=== PATIENT | male | born 2000 | race Caucasian/White ===

== ENCOUNTER 2021-05-03 10:17 | Emergency (ER) | payer MEDICAID, SELFPAY ==
--- NOTE | ~2021-05-03 | US_ITS ---
EXAMINATION: US ABDOMEN LIMITED CLINICAL INFORMATION: Right upper quadrant pain and vomiting. COMPARISON: None TECHNIQUE: Real-time imaging of the right upper quadrant abdominal viscera. FINDINGS: PANCREAS: Not well visualized due to bowel gas. LIVER: Liver echotexture is increased probably representing fatty infiltration. There is a hypoechoic area adjacent to the gallbladder, characteristic location of focal fatty sparing. The liver is normal in size. The liver contour is normal. Parenchymal echogenicity is normal. No other focal hepatic lesion. There is no intrahepatic biliary duct dilatation seen. GALLBLADDER: Normal. The gallbladder is physiologically distended without evidence of stones, sludge, polyps, wall thickening or pericholecystic fluid. COMMON BILE DUCT: Normal in caliber measuring 0.3 cm in diameter. RIGHT KIDNEY: Normal. No hydronephrosis. No renal calculi or focal parenchymal lesions. The kidney measures 11.9 cm in maximum dimension. FREE FLUID: None. US/US abdomen limited IMPRESSION: Fatty liver. Normal-appearing gallbladder. Nonvisualization of the pancreas.
[2021-05-03 10:43] VITALS: BP 135/71; PULSE 79; RESP 18; TEMP 36.6; O2SAT 98; BMI 39.8
[2021-05-03] MEDS: Ondansetron ODT 4 MG TAB.RAPDIS TRANSLINGU (10:50)
[2021-05-03 11:24] LABS: COVID-19 Test Negative (Negative); IDNOW Serial# 55D5AD1C
--- NOTE | 2021-05-03 12:22 | ED_ITS ---
HPI - Abdominal Pain General Chief Complaint: Abdominal Pain Stated Complaint: N/V/D Time Seen by Provider: 05/03/21 11:42 Source: patient and family Mode of arrival: ambulatory Limitations: no limitations History of Present Illness HPI narrative: 20-year-old male with a history of obesity, anxiety, asthma, ADHD here with reports of upper abdominal pain with vomiting after eating fried chicken wings last night. Patient reports he has vomited 4-5 times since then. He is unable to maintain any fluids. He has also had 2-3 episodes of diarrhea. No fever or urinary symptoms. Related Data Previous Rx's Medication Instructions Recorded ondansetron 4 mg disintegrating 4 mg PO Q6H PRN #10 tab 05/03/21 tablet Allergies Allergy/AdvReac Type Severity Reaction Status Date / Time SEAFOOD Allergy Mild HIVES Uncoded 05/03/21 10:42 Mice Allergy Unknown Unknown Uncoded 05/03/21 10:42 Seasonal allergy Allergy Unknown Unknown Uncoded 05/03/21 10:42 Shellfish Allergy Unknown Unknown Uncoded 05/03/21 10:42 Review of Systems Review of Systems Yes all other systems are reviewed and are negative Constitutional: Reports no additional constitutional complaints, Denies body ache(s), Denies chills, Denies fever(s), Denies headache(s) and Denies weakness Eyes: Reports no additional eye complaints and Denies change in vision Reports system reviewed and no additional complaints, except as documented, Estevan es dizziness, Denies headache(s), Denies nasal congestion, Denies nasal discharge and Denies neck pain Cardiovascular: Reports no additional cardiovascular complaints, Denies chest pain, Denies leg edema and Denies dyspnea Respiratory: Reports no additional respiratory complaints, Denies cough and Denies dyspnea Gastrointestinal: Reports no additional gastrointestinal complaints, Reports abdominal pain, Reports diarrhea, Reports nausea and Reports vomiting Genitourinary: Denies urinary incontinence Musculoskeletal: Reports no additional musculoskeletal complaints, Denies back pain, Denies arthralgias, Denies joint swelling, Denies neck pain, Denies numbness and Denies tingling Skin/Breast: Reports system reviewed and no additional complaints, except as docu and Denies rash Reports system reviewed and no additional complaints, except as documented, Denies dizziness, Denies headache(s), Denies numbness, Denies tingling and Denies weakness PMF Past Medical History Attestation statement: The following information was validated with the patient. Source: old records reviewed and nursing notes reviewed Medical History ADHD (attention deficit hyperactivity disorder) Anxiety Asthma Social History Social History Advance Directives: No Advance Directives Information Provided: No Physical Exam ED Vital Signs: Vital Signs - 24 hr 05/03/21 10:43 05/03/21 14:38 Temperature 97.8 F Pulse Rate 79 75 Respiratory Rate 18 16 Blood Pressure 135/71 138/69 Pulse Oximetry 98 99 BMI result Body Mass Index 39.8 Const General: cooperative, healthy appearing, comfortable and no acute distress Orientation/consciousness: patient oriented x3 Limitations: no limitations HENMT Head: Yes normal to inspection Ears: hearing grossly normal bilaterally General nose exam: Normal external nose present Face and sinus: Yes normal facial exam Mouth: Normal oral and palatal mucosa present Throat: Yes posterior oropharynx normal and Yes tonsils normal Eyes General: appearance normal, both eyes and all related structures Pupils: Equal, round and reactive pupils present Neck Neck: Yes normal visual inspection, Yes full ROM, Yes no lymphadenopathy and Yes no meningeal signs Chest Chest palpation & inspection: normal inspection of the chest Resp Effort & Inspection: normal respiratory effort Auscultation: clear to auscultation bilaterally Cardio Rate: regular rate Peripheral pulses: Peripheral pulses 2+ throughout GI Inspection: Yes normal to inspection Palpation (GI): Soft to palpation, Tenderness to palpation present (GI) (Epigastric/RUQ) and no guarding General: Yes no CVA tenderness Back/Spine/Pelvis Back: no CVA tenderness Skin General skin exam: no rashes or lesions noted Neuro General: patient oriented x3, moves all extremities and no meningeal signs Cranial nerves: Yes Equal, round and reactive pupils present Cognition (Neuro): normal cognition Gait exam (Neuro): Normal gait present Motor exam (neuro): 5/5 motor strength present throughout Extrem General: Yes normal to inspection, Yes no pedal edema and Yes no calf tenderness Course Course Course Narrative: 20-year-old male with a history of obesity here with complaints of upper abdomen pain and vomiting since last evening after eating fried chicken. On exam the patient has tenderness to the epigastric and right upper quadrant area. Will check labs, UA, COVID screen, abdominal ultrasound 1440-labs are unremarkable. Abdominal ultrasound is negative for acute cholec ystitis. COVID screen is negative. Patient is tolerating elo tesha with no additional vomiting episodes. He tells me he is feeling improved. Likely viral gastroenteritis. Reviewed worrisome signs and symptoms of when to return to the emergency department. Comfortable discharge home. MDM - Abdominal Pain MDM Narrative Medical decision making narrative: Gastroenteritis, cholecystitis Medical Records Attestation: I reviewed the patient's medical records. Lab Data Attestation: I reviewed the patient's lab results. Result diagrams: 05/03/21 13:01 05/03/21 13:01 Labs: Lab Results 05/03/21 05/03/21 05/03/21 Range/Units 10:48 12:22 13:01 WBC 12.7 H (4.8-10.8) X10*3/uL RBC 5.66 (4.60-5.80) X10*6/uL Hgb 15.4 (14.0-18.0) g/dl Hct 47.5 (42.0-52.0) % MCV 83.9 (80.0-98.0) fL MCH 27.2 (27.0-33.0) pg MCHC 32.4 (31.0-36.0) g/dl RDW 13.0 (11.0-16.0) % Plt Count 403 H (160-400) X10*3/uL MPV 10.0 (9.4-12.4) fL Immature Gran % (Auto) 0.4 (0.0-0.4) % Neut % (Auto) 87.9 H (45-73) % Lymph % (Auto) 5.8 L (20-40) % [place] % (Auto) 5.5 (2-11) % Eos % (Auto) 0.2 (0-4) % Baso % (Auto) 0.2 (0-2) % Lymph # (Auto) 0.7 L (1.2-4.9) X10*3/uL [place] # (Auto) 0.7 (0.1-1.2) X10*3/uL Eos # (Auto) 0.0 (0.0-0.4) X10*3/uL Baso # (Auto) 0.0 (0.0-0.2) X10*3/uL Abs Immat Gran (auto) 0.05 H (0.00-0.03) X10*3/uL Absolute Neuts (auto) 11.1 H (2.0-8.3) x10*3/uL Absolute Nucleated RBC 0.000 (0.0-0.012) X10*3/uL Nucleated RBC % (auto) 0.0 (0.0-0.2) /100WBC Sodium (135-145) mmol/L Potassium (3.3-5.1) mmol/L Chloride (96-108) mmol/L Carbon Dioxide (22-29) mmol/L Anion Gap (12-20) BUN (9-16) mg/dL Creatinine (0.5-1.4) mg/dL Estim Creat Clear Calc Estimated GFR Random Glucose (60-115) mg/dL Calcium (8.4-10.2) mg/dL Total Bilirubin (0.0-1.0) mg/dL Direct Bilirubin (0.0-0.5) mg/dL AST (5-37) U/L ALT (0-40) U/L Alkaline Phosphatase (39-117) U/L Total Protein (6.5-8.0) g/dL Albumin (3.5-5.0) g/dL Lipase (8-78) U/L Urine Color YELLOW Urine Appearance HAZY Urine pH 7.0 (5.0-8.0) Ur Specific [place] 1.015 (1.005-1.025) Urine Protein 1+ H (NEG-TRACE) MG/DL Urine Glucose (UA) NEG (NEG) MG/DL Urine Ketones NEG (NEG) MG/DL Urine Blood NEG (NEG) Urine Nitrite NEG (NEG) Ur Leukocyte Esterase NEG (NEG) Urine RBC 0-2 (0) /HPF Urine WBC 0-2 (0-4) /HPF Ur Squamous Epith Cells TRACE /LPF Urine Bacteria TRACE /LPF Hyaline Casts 0-2 /LPF Urine Mucus 1+ /LPF COVID-19 (GERDA) Negative (Negative) COVID-19 Clin Com See Note 05/03/21 Range/Units 13:01 WBC (4.8-10.8) X10*3/uL RBC (4.60-5.80) X10*6/uL Hgb (14.0-18.0) g/dl Hct (42.0-52.0) % MCV (80.0-98.0) fL MCH (27.0-33.0) pg MCHC (31.0-36.0) g/dl RDW (11.0-16.0) % Plt Count (160-400) X10*3/uL MPV (9.4-12.4) fL Immature Gran % (Auto) (0.0-0.4) % Neut % (Auto) (45-73) % Lymph % (Auto) (20-40) % [place] % (Auto) (2-11) % Eos % (Auto) (0-4) % Baso % (Auto) (0-2) % Lymph # (Auto) (1.2-4.9) X10*3/uL [place] # (Auto) (0.1-1.2) X10*3/uL Eos # (Auto) (0.0-0.4) X10*3/uL Baso # (Auto) (0.0-0.2) X10*3/uL Abs Immat Gran (auto) (0.00-0.03) X10*3/uL Absolute Neuts (auto) (2.0-8.3) x10*3/uL Absolute Nucleated RBC (0.0-0.012) X10*3/uL Nucleated RBC % (auto) (0.0-0.2) /100WBC Sodium 139 (135-145) mmol/L Potassium 4.7 (3.3-5.1) mmol/L Chloride 105 (96-108) mmol/L Carbon Dioxide 27 (22-29) mmol/L Anion Gap 12 (12-20) BUN 10 (9-16) mg/dL Creatinine 0.83 (0.5-1.4) mg/dL Estim Creat Clear Calc 211.9 Estimated GFR > 60 Random Glucose 96 (60-115) mg/dL Calcium 10.3 H (8.4-10.2) mg/dL Total Bilirubin 0.5 (0.0-1.0) mg/dL Direct Bilirubin 0.3 (0.0-0.5) mg/dL AST 22 (5-37) U/L ALT 45 H (0-40) U/L Alkaline Phosphatase 88 (39-117) U/L Total Protein 7.6 (6.5-8.0) g/dL Albumin 4.7 (3.5-5.0) g/dL Lipase 11 (8-78) U/L Urine Color Urine Appearance Urine pH (5.0-8.0) Ur Specific [place] (1.005-1.025) Urine Protein (NEG-TRACE) MG/DL Urine Glucose (UA) (NEG) MG/DL Urine Ketones (NEG) MG/DL Urine Blood (NEG) Urine Nitrite (NEG) Ur Leukocyte Esterase (NEG) Urine RBC (0) /HPF Urine WBC (0-4) /HPF Ur Squamous Epith Cells /LPF Urine Bacteria /LPF Hyaline Casts /LPF Urine Mucus /LPF COVID-19 (GERDA) (Negative) COVID-19 Clin Com Imaging Data US - abdomen: Attestation: I personally reviewed and interpreted this imaging study as follows: Radiologist's impression: [place] [id number] Ultrasound Report Signed Patient: Reyes Moseley MR#: [id number] : 2000 Acct:[id number] Age/Sex: 20 / M ADM Date: 05/03/21 Loc: HO.ED Attending Dr: Ordering Physician: Liza Marcum NP Date of Service: 05/03/21 Procedure(s): US abdomen limited Accession Number(s): [id number] cc: Liza Marcum NP~ EXAMINATION: US ABDOMEN LIMITED CLINICAL INFORMATION: Right upper quadrant pain and vomiting. COMPARISON: None TECHNIQUE: Real-time imaging of the right upper quadrant abdominal viscera. FINDINGS: PANCREAS: Not well visualized due to bowel gas. LIVER: Liver echotexture is increased probably representing fatty infiltration. There is a hypoechoic area adjacent to the gallbladder, characteristic location of focal fatty sparing. The liver is normal in size. The liver contour is normal. Parenchymal echogenicity is normal. No other focal hepatic lesion. There is no intrahepatic biliary duct dilatation seen. GALLBLADDER: Normal. The gallbladder is physiologically distended without evidence of stones, sludge, polyps, wall thickening or pericholecystic fluid. COMMON BILE DUCT: Normal in caliber measuring 0.3 cm in diameter. RIGHT KIDNEY: Normal. No hydronephrosis. No renal calculi or focal parenchymal lesions. The kidney measures 11.9 cm in maximum dimension. FREE FLUID: None. US/US abdomen limited IMPRESSION: Fatty liver. Normal-appearing gallbladder. Nonvisualization of the pancreas. Discharge Plan Discharge Clinical Impression: Gastroenteritis Patient Disposition: Home, Self-Care Instructions: Gastroenteritis (DC) Additional Instructions: Start with clear liquids and advance diet as tolerated Your blood work, ultrasound all of normal COVID test is negative Prescriptions: New ondansetron 4 mg tablet,disintegrating 4 mg PO Q6H PRN (Reason: nausea and vomiting) Qty: 10 0RF Referrals: Dm Ag MD [Primary Care Provider] - 1 week Stand Alone Forms: Work/School Release Interventions: ED Discharge Assessment Last Done: 05/03/21 15:23 Discharge Date/Time: 05/03/21 15:23
[2021-05-03 12:28] LABS: Appearance Urine HAZY; Color Urine YELLOW; Glucose Urine UA NEG (NEG); Leukocyte Esterase Urine NEG (NEG); Nitrite Urine NEG (NEG); Specific Gravity - Urine 1.015 (1.005-1.025); UACC Culture Trigger NO; Urine Blood NEG (NEG); Urine Ketones NEG (NEG); Urine Protein 1+ MG/DL (NEG-TRACE)
[2021-05-03 12:37] LABS: Bacteria Urine TRACE /LPF; Hyaline Casts Urine 0-2 /LPF; Mucus Urine 1+ /LPF; RBC Urine 0-2 /HPF (0); Squamous Epithelial Cell Urine TRACE /LPF; WBC Urine 0-2 /HPF (0-4)
[2021-05-03] MEDS: ondansetron HCL 4 MG/2 ML VIAL IVPUSH (13:04)
[2021-05-03] MEDS: Morphine Sulfate 4 MG/ML CARTRIDGE IVPUSH (13:05)
[2021-05-03] MEDS: 0.9 % Sodium Chloride 1,000 ML 999 ML IV (13:05)
[2021-05-03 13:09] LABS: MANUAL DIFF FLAG NO
[2021-05-03 13:18] LABS: Basophils Percent Auto 0.2 % (0-2); Eosinophils Percent Auto 0.2 % (0-4); Hematocrit 47.5 % (42.0-52.0); Hemoglobin 15.4 g/dl (14.0-18.0); Imm Gran Abs Auto 0.05 X10*3/uL (0.00-0.03); Imm Gran Pct Auto 0.4 % (0.0-0.4); Lymphocytes Absolute Auto 0.7 X10*3/uL (1.2-4.9); Lymphocytes Percent Auto 5.8 % (20-40); Mean Corpuscular HGB Conc 32.4 g/dl (31.0-36.0); Mean Corpuscular Hemoglobin 27.2 pg (27.0-33.0); Mean Corpuscular Volume 83.9 fL (80.0-98.0); Monocytes Absolute Auto 0.7 X10*3/uL (0.1-1.2); Monocytes Percent Auto 5.5 % (2-11); Neutrophils Absolute Auto 11.1 x10*3/uL (2.0-8.3); Neutrophils Percent Auto 87.9 % (45-73); Platelet Count 403 X10*3/uL (160-400); Red Blood Count 5.66 X10*6/uL (4.60-5.80); White Blood Count 12.7 X10*3/uL (4.8-10.8)
[2021-05-03 13:33] LABS: Alanine Aminotransferase 45 U/L (0-40); Albumin Level 4.7 g/dL (3.5-5.0); Alkaline Phosphatase 88 U/L (39-117); Anion Gap 12 (12-20); Aspartate Amino Transferase 22 U/L (5-37); Bilirubin Direct 0.3 mg/dL (0.0-0.5); Bilirubin Total 0.5 mg/dL (0.0-1.0); Blood Urea Nitrogen 10 mg/dL (9-16); Calcium 10.3 mg/dL (8.4-10.2); Carbon Dioxide 27 mmol/L (22-29); Chloride 105 mmol/L (96-108); Creatinine Clr Calc Pharmacy 211.9; Estimated Glomerular Filt Rate > 60; Glucose Random 96 mg/dL (60-115); Lipase 11 U/L (8-78); Potassium 4.7 mmol/L (3.3-5.1); Sodium 139 mmol/L (135-145); Total Protein 7.6 g/dL (6.5-8.0)
[2021-05-03 14:38] VITALS: BP 138/69; PULSE 75; RESP 16; O2SAT 99
== END 2021-05-03 15:23 | disposition home or self-care (01) ==
PROVIDERS: Nurse Practitioner Family; Emergency Provider Emergency Medicine; PCP Internal Medicine
DX: K52.9 Noninfective gastroenteritis and colitis, unspecified (principal); R11.10 Vomiting, unspecified; R10.11 Right upper quadrant pain; F41.1 Generalized anxiety disorder; F43.0 Acute stress reaction; Z20.822 Contact with and (suspected) exposure to COVID-19; Z79.899 Other long term (current) drug therapy
CPT/HCPCS: 36415; 76705; 80048; 80076; 81001; 83690; 85025; 87635; 96361; 96374; 96375; 99283; 99284; J2270; J2405

== ENCOUNTER 2022-11-20 16:53 | Emergency (ER) | payer MEDICAID, SELFPAY ==
--- NOTE | ~2022-11-20 | XR_ITS ---
EXAMINATION: XR CHEST CLINICAL INFORMATION: Productive cough. History of Covid COMPARISON: None available. TECHNIQUE: 2 views of the chest were obtained. FINDINGS: No significant abnormality is noted involving the heart, lungs, mediastinum, bony thorax or soft tissues. XR/XR chest 2V IMPRESSION: Unremarkable examination.
[2022-11-20 17:22] VITALS: BP 140/94; PULSE 87; RESP 18; TEMP 36; O2SAT 98; BMI 45.6
--- NOTE | 2022-11-20 17:22 | ED_ITS ---
HPI - General Adult General Chief complaint: Upper Respiratory Symptoms Stated complaint: Headache/Conjested Time Seen by Provider: 11/20/22 21:40 Source: patient and family Mode of arrival: ambulatory History of Present Illness HPI narrative: 21-year-old male with presentation for headache, congestion, red itchy eyes for 3 days, sore throat, cough. Related Data Previous Rx's Medication Instructions Recorded ondansetron 4 mg disintegrating 4 mg PO Q6H PRN nausea and 05/03/21 tablet vomiting #10 tabs Allergies Allergy/AdvReac Type Severity Reaction Status Date / Time SEAFOOD Allergy Mild HIVES Uncoded 11/20/22 17:26 Mice Allergy Unknown Unknown Uncoded 11/20/22 17:26 Seasonal allergy Allergy Unknown Unknown Uncoded 11/20/22 17:26 Shellfish Allergy Unknown Unknown Uncoded 11/20/22 17:26 Review of Systems Review of Systems: Pertinent positives and negatives as stated in HPI [facility] Past Medical History Source: nursing notes reviewed Medical History ADHD (attention deficit hyperactivity disorder) Anxiety Asthma Social History Social History Smoked in Last 30 Days: No Use of substances other than those prescribed or required for medical reasons: No Advance Directives: No Advance Directives Information Provided: No Physical Exam ED Vital Signs: Vital Signs - 24 hr 11/20/22 17:22 11/20/22 23:22 Temperature 96.8 F Pulse Rate 87 Respiratory Rate 18 Blood Pressure 140/94 H Pulse Oximetry 98 97 Oxygen Delivery Method Room Air Room Air BMI result Body Mass Index 45.6 VITAL SIGNS: Reviewed. GENERAL: Well developed, well nourished, in no acute distress. HEAD: Normocephalic/atraumatic EYES: PERRLA, EOMI EARS: Ext canals without abnormality, TMs non-bulging and non-erythematous NOSE: Nares patent bilateral OROPHARYNX: no oral lesions noted, posterior pharynx clear and non-erythematous without noted tonsillar enlargement/erythema/exudates NECK: Supple, no adenopathy LUNGS: Normal breath sounds. No adventitious sounds or accessory muscle use. SpO2<98> CARDIOVASCULAR: Regular rate and rhythm without noted murmurs ABDOMEN: Soft, non-tender, non-distended with bowel sounds. MUSCULOSKELETAL: No tenderness, deformities, or effusions noted on gross inspection. EXTREMITIES: No cyanosis, clubbing or edema. SKIN: Inspection of the skin reveals no rashes NEUROLOGIC: Alert and oriented x 4. Strength and sensation to light touch were grossly intact x 4. Course Course Course Narrative: This is a rapid medical exam: Additional HPI, ROS, PE not included below will be deferred to primary provider. Patient is a 21-year-old male presenting to the emergency department with complaint of headache and eye redness for 3 days, had Covid last week. Also complains of bilateral ear pain and sore throat, cough productive of green sputum. Mother reports patient felt warm yesterday but did not check temp. Plan: strep, flu Medications Administered Discontinued Medications Generic Name Dose Route Start Last Admin Trade Name Freq PRN Reason Stop Dose Admin Acetaminophen 975 mg 11/20/22 21:40 11/20/22 23:19 Acetaminophen 325 Mg Tablet PO 11/20/22 21:41 975 mg ONCE ONE Administration Ibuprofen 400 mg 11/20/22 21:40 11/20/22 23:19 Ibuprofen 400 Mg Tablet PO 11/20/22 21:41 400 mg ONCE ONE Administration Medical Decision Making Medical Decision Making MDM Narrative: 21-year-old male with history and clinical presentation consistent with likely viral illness, I reviewed all investigations and patient is COVID-19 positive. He is oxygenating well on room air without tachypnea or tachycardia. Symptoms have been for greater than 72 hours and he does not qualify for Paxlovid. He was offered Tylenol as well as ibuprofen and discharged home. Differential Diagnosis Differential Diagnoses: The differential diagnosis associated with the presentation includes Please see the discussion above Admission/Observation Consideration of admission/observation: Escalation of care including admission/observation considered Please see the discussion above Lab Data [facility] Lab Attestation statement: I reviewed the patient's lab results. Please see the discussion above Labs: Lab Results 11/20/22 11/20/22 11/20/22 Range/Units 17:53 17:53 21:47 COVID-19 (GERDA) Positive A (Negative) COVID-19 Clin Com See Note Influenza Type A (TIFFANY) Negative (Negative) Influenza Type B (TIFFANY) Negative (Negative) Influenza A & B Note See Note S. pyogenes GrpA TIFFANY Negative (Negative) Discharge Plan Discharge Clinical Impression: Viral infection, Lab test positive for detection of COVID-19 virus Patient Disposition: Home, Self-Care Instructions: Viral Syndrome (ED), COVID-19 (Coronavirus Disease 2019) (ED) Additional Instructions: 1. You must isolate for the next 5 days, then follow all CDC guidelines for interaction with others. 2. Recommend [id number] Tylenol/ibuprofen as needed for body aches, temperatures greater than 100.4. 3. Make an appointment with your primary care doctor via telemedicine appointment. Return to the ER for any worsening symptoms. Prescriptions: No Action ondansetron 4 mg tablet,disintegrating 4 mg PO Q6H PRN (Reason: nausea and vomiting) Qty: 10 0RF
--- OUTSIDE RECORDS SUMMARY | 2022-11-20 17:57 | XMS_ITS | Continuity of Care Document ---
Author Name Unknown Organization [facility] Address [address] [place] [address]- Care Team Providers Care Chief Safety Officer Name Role Phone Michael JACK, Estelita Z Primary Care Physician ([facility])[phone] [id number] Date[facility]14[facility]20 [facility] [address] [place] [address]- Attending Physician: Katerin Norris RD Admitting Physician: Katerin Norris RD Allergies, Adverse Reactions, Alerts Substance Reaction Severity Status Seafood Active Medications advair advair, Refills 0, Maintenance, 03/29/18 14:31:03 EST, Compound Start Date: 03/29/18 Status: Ordered Albuterol 0 Refills, Maintenance, 11/25/14 12:07:29 Start Date: 11/25/14 Status: Ordered dicyclomine 10 mg oral capsule 1 capsule = 10 mg, By Mouth, 2 times a day, # 60 capsule, 6 Refills, Maintenance, 09/17/19 17:59:00EDT, Capsule, [id number], 188.2, cm, 06/23/19 8:42:00 EDT, Height, 137.7, kg, 03/29/18 14:28:00 EST, Dry Weight Start Date: 09/17/19 Stop Date: 04/14/20 Status: Ordered EpiPen 2-Caden = 0.3 mg, Intramuscular, Once, 0 Refills, Maintenance, 07/31/17 13:05:41 EDT Start Date: 07/31/17 Status: Ordered Loratadine By Mouth, Refills 0, Maintenance, 09/17/15 14:24:21 Start Date: 09/17/15 Status: Ordered Melatonin Daily at bedtime, 0 Refills, Maintenance, 07/31/17 13:05:37 EDT Start Date: 07/31/17 Status: Ordered Methylphenidate 0 Refills, Maintenance, 09/17/15 14:24:05 Start Date: 09/17/15 Status: Ordered Ranitidine 0 Refills, Maintenance, 03/29/18 14:31:15 EST Start Date: 03/29/18 Status: Ordered Sertraline By Mouth, Daily, 0 Refills, Maintenance, 09/17/15 14:23:30 Start Date: 09/17/15 Status: Ordered Problem List Condition Effective Dates Status Health Status Inform ant Abdominal pain(Confirmed) Active Abdominal pain(Confirmed) Active Obesity, childhood(Confirmed) Active Social History Social History Type Response Smoking Status Never smoker; Tobacc o user in household: No entered on: 07/31/17 Sex
--- OUTSIDE RECORDS SUMMARY | 2022-11-20 17:57 | XMS_ITS | Continuity of Care Document ---
Author Name Unknown Organization [facility] Address [address] [place] [address]- Care Team Providers Care Hand Alterations Tailor Name Role Phone Michael JACK, Estelita Doran Primary Care Physician [id number] Date(s): 06/23/19 - 06/30/19 [facility] [address] [place] [address] [facility] Attending Physician: Zachariah GARCIA, Tj Araujo Allergies, Adverse Reactions, Alerts Substance Reaction Severity Status Seafood Active Medications advair advair, Refills 0, Maintenance, 03/29/18 14:31:03 EST, Compound Start Date: 03/29/18 Status: Ordered Albuterol 0 Refills, Maintenance, 11/25/14 12:07:29 Start Date: 11/25/14 Status: Ordered EpiPen 2-Caden = 0.3 mg, [...] Active Abdominal pain(Confirmed) Active Obesity, childhood(Confirmed) Active Vital Signs Most recent to oldest [Reference Range]: 1 2 Height 188.2 cm (06/23/19 8:42 AM) 188.2 cm (06/23/19 8:42 AM) Social History Social History Type Response Smoking Status Never smoker; Tobacc o user in household: No entered on: 07/31/17 Sex
--- OUTSIDE RECORDS SUMMARY | 2022-11-20 17:57 | XMS_ITS | Continuity of Care Document ---
Author Name Unknown Organization [facility] Address [address] [place] [address]- Care Team Providers Care Cleaner Housekeeping Name Role Phone Michael JACK, Estelita Doran Primary Care Physician [phone] Encounter [facility] Date(s): 06/11/19 - 06/18/19 [facility] [address] [place] [id number] [facility] Attending Physician: Boo GARCIA, Yesenia Kim Allergies, Adverse Reactions, Alerts Substance Reaction Severity [...]
--- OUTSIDE RECORDS SUMMARY | 2022-11-20 17:57 | XMS_ITS | Continuity of Care Document ---
Author Name Unknown Organization [facility] Address [address] [place] [address]- Care Team Providers Care Coding Machine Operator Name Role Phone Michael JACK, Estelita Z Primary Care Physician Encounter [facility] Date(s): 08/12/19 - 09/11/19 [facility] [address] [place] [phone] [facility] Attending Physician: Donald Ritchie Admitting Physician: Admtr, Donald Referring Physician: Admtr, Ar8 Allergies, Adverse Reactions, Alerts Substance Reaction Severity [...]
--- OUTSIDE RECORDS SUMMARY | 2022-11-20 17:57 | XMS_ITS | Continuity of Care Document ---
Author Name Unknown Organization [facility] Address [address] [place] [address]- Care Team Providers Care Commercial Food Instructor Name Role Phone Michael JACK, Estelita Doran Primary Care Physician Encounter [facility] Date(s): 09/23/19 - 10/23/19 [facility] [address] [place] [phone]- [facility] Allergies, Adverse Reactions, Alerts Substance Reaction Severity Status Seafood Active Medications advair advair, Refills 0, Maintenance, 03/29/18 14:31:03 EST, Compound Start Date: 03/29/18 Status: Ordered Albuterol 0 Refills, Maintenance, 11/25/14 12:07:29 Start Date: 11/25/14 Status: Ordered dicyclomine 10 mg oral capsule 1 capsule = 10 mg, By Mouth, 2 times a day, # 60 capsule, 6 Refills, Maintenance, 09/17/19 17:59:00EDT, Capsule, [id number], 188.2, cm, 06/23/19 8:42:00 EDT, Height, 137.7, [...]
--- OUTSIDE RECORDS SUMMARY | 2022-11-20 17:57 | XMS_ITS | Continuity of Care Document ---
Author Name Unknown Organization [facility] Address Unknown Care Team Providers Care Sewage Plant Attendant Name Role Phone Kristal Yeung MD, Dm Primary Care Phys ician Encounter [facility] [place] Date(s): 10/04/20 - 11/03/20 [facility] [address] [place] [id number] Allergies, Adverse Reactions, Alerts Substance Reaction Severity Status Seafood Active Medications advair advair, Refills 0, Maintenance, 03/29/18 14:31:03 EST, Compound Start Date: 03/29/18 Status: Ordered Albuterol 0 Refills, Maintenance, 11/25/14 12:07:29 Start Date: 11/25/14 Status: Ordered dicyclomine 10 mg oral capsule 1 capsule = 10 mg, By Mouth, 2 times a day, # 60 capsule, 6 Refills, Maintenance, 09/17/19 17:59:00EDT, Capsule, [facility] #[id number], 188.2, cm, 06/23/19 8:42:00 EDT, Height, 137.7, [...]
--- OUTSIDE RECORDS SUMMARY | 2022-11-20 17:57 | XMS_ITS | Continuity of Care Document ---
Author Name Unknown Organization [facility] Address [address] [place] [address]- Care Team Providers Care Concrete Technician Name Role Phone Michael JACK, Estelita Z Primary Care Physician ([facility])[phone] [id number](s[facility] 07/16/20 - 08/15/20 [facility] [address] [place] [address]- Attending Physician: Donald Ritchie Admitting Physician: Donald Ritchie Referring Physician: Donald Ritchie Allergies, Adverse Reactions, Alerts Substance Reaction Severity Status Seafood Active Medications advair advair, Refills 0, Maintenance, 03/29/18 14:31:03 EST, Compound Start Date: 03/29/18 Status: Ordered Albuterol 0 Refills, Maintenance, 11/25/14 12:07:29 Start Date: 11/25/14 Status: Ordered dicyclomine 10 mg oral capsule 1 capsule = 10 mg, By Mouth, 2 times a day, # 60 capsule, 6 Refills, Maintenance, 09/17/19 17:59:00EDT, Capsule, [facility] #[id number], 188.2, cm, 06/23/19 8:42:00 EDT, Height, 137.7, [...]
--- OUTSIDE RECORDS SUMMARY | 2022-11-20 17:57 | XMS_ITS | Continuity of Care Document ---
Author Name Unknown Organization [facility] Address Unknown Care Team Providers Care Supervisor Carding Name Role Phone Kristal Yeung MD, Dm Primary Care Phys ician Encounter [facility] [place] Date(s): 10/01/20 - 11/03/20 [facility] Attending Physician: Nancy Sage NP Admitting Physician: Nancy Sage NP Allergies, Adverse Reactions, Alerts Substance Reaction Severity Status Seafood Active Medications advair advair, Refills 0, Maintenance, 03/29/18 14:31:03 EST, Compound Start Date: 03/29/18 Status: Ordered Albuterol 0 Refills, Maintenance, 11/25/14 12:07:29 Start Date: 11/25/14 Status: Ordered dicyclomine 10 mg oral capsule 1 capsule = 10 mg, By Mouth, 2 times a day, # 60 capsule, 6 Refills, Maintenance, 09/17/19 17:59:00EDT, Capsule, [facility] #[id number], 188.2, cm, 06/23/19 8:42:00 EDT, Height, 137.7, [...]
--- OUTSIDE RECORDS SUMMARY | 2022-11-20 17:57 | XMS_ITS | Continuity of Care Document ---
Author Name Unknown Organization [facility] Address [address] [place] [address]- Care Team Providers Care Pot Fluxer Name Role Phone Michael JACK, Estelita Doran Primary Care Physician [phone] Encounter [facility] [place] Date(s): 09/17/19 - 10/17/19 [facility] [address] [place] [address]- [facility] Allergies, Adverse Reactions, Alerts Substance Reaction Severity Status Seafood Active Medications advair advair, Refills 0, Maintenance, 03/29/18 14:31:03 EST, Compound Start Date: 03/29/18 Status: Ordered Albuterol 0 Refills, Maintenance, 11/25/14 12:07:29 Start Date: 11/25/14 Status: Ordered dicyclomine 10 mg oral capsule 1 capsule = 10 mg, By Mouth, 2 times a day, # 60 capsule, 6 Refills, Maintenance, 09/17/19 17:59:00EDT, Capsule, [facility] #[id number], 188.2, cm, 06/23/19 8:42:00 EDT, Height, 137.7, [...]
--- OUTSIDE RECORDS SUMMARY | 2022-11-20 17:57 | XMS_ITS | Continuity of Care Document ---
Author Name Unknown Organization [facility] Address [address] [place] [address]- Care Team Providers Care Director Biologics Name Role Phone Michael JACK, Estelita Doran Primary Care Physician [id number] Date(s): 06/23/19 - 07/03/19 [facility] [address] [place] [address]- [facility] Attending Physician: Admtr, Ar8 Admitting Physician: Admtr, Ar8 Referring Physician: Admtr, Ar8 Allergies, Adverse Reactions, [...]
--- OUTSIDE RECORDS SUMMARY | 2022-11-20 17:57 | XMS_ITS | Continuity of Care Document ---
Author Name Unknown Organization [facility] Address Unknown Care Team Providers Care Repeat Photocomposing Machine Operator Name Role Phone Kristal Yeung MD, Dm Primary Care Phys ician Encounter [facility] [place] Date(s): 10/04/20 - 11/03/20 [facility] Attending Physician: Donald Ritchie Admitting Physician: Donald Ritchie Referring Physician: AdmtrDonald Allergies, Adverse Reactions, Alerts Substance Reaction Severity Status Seafood Active Medications advair advair, Refills 0, Maintenance, 03/29/18 14:31:03 EST, Compound Start Date: 03/29/18 Status: Ordered Albuterol 0 Refills, Maintenance, 11/25/14 12:07:29 Start Date: 11/25/14 Status: Ordered dicyclomine 10 mg oral capsule 1 capsule = 10 mg, By Mouth, 2 times a day, # 60 capsule, 6 Refills, Maintenance, 09/17/19 17:59:00EDT, Capsule, [facility] #[id number], 188.2, cm, 06/23/19 8:42:00 EDT, Height, 137.7, [...]
--- OUTSIDE RECORDS SUMMARY | 2022-11-20 17:57 | XMS_ITS | Continuity of Care Document ---
Author Name Unknown Organization [facility] Address [address] [place] [address]- Care Team Providers Care Log Roper Name Role Phone Kristal Yeung MD, Dm Primary Care Phys ician Encounter [facility] [place] Date(s): 02/01/21 - 02/01/[address] [address] Discharge Disposition: A-D/C Home Attending Physician: Elver Alberts DMD, V Admitting Physician: Elver Alberts DMD, V Referring Physician: Elver Alberts DMD, V Allergies, Adverse Reactions, Alerts Substance Reaction Severity Status Seafood Active Medications advair advair, Refills 0, Maintenance, 03/29/18 14:31:03 EST, Compound Start Date: 03/29/18 Status: Ordered Albuterol 0 Refills, Maintenance, 11/25/14 12:07:29 Start Date: 11/25/14 Status: Ordered dicyclomine 10 mg oral capsule 1 capsule = 10 mg, By Mouth, 2 times a day, # 60 capsule, 6 Refills, Maintenance, 09/17/19 17:59:00EDT, Capsule, [facility] #[id number], 188.2, cm, 06/23/19 8:42:00 EDT, Height, 137.7, [...] 09/17/15 14:24:05 Start Date: 09/17/15 Status: Ordered OxyCODONE IR Tablet 5 mg, Tablet, By Mouth, Every 4 hours, in PACU ONLY, if patient can tolerate PO, PRN for Pain , Mild, Routine, 02/01/21 14:12:00 EST Start Date: 02/01/21 Stop Date: 02/08/21 Status: Ordered Ranitidine 0 Refills, Maintenance, 03/29/18 14:31:15 EST Start Date: 03/29/18 Status: Ordered Sertraline By Mouth, Daily, 0 Refills, Maintenance, 09/17/15 14:23:30 Start Date: 09/17/15 Status: Ordered Problem List Condition Effective Dates Status Health Status Inform ant Abdominal pain(Confirmed) Active Abdominal pain(Confirmed) Active Obesity, childhood(Confirmed) Active Vital Signs Most recent to oldest [Reference Range]: 1 2 3 Oxygen Saturation [94-100 %] 97 % (02/01/21 2:45 PM) 97 % (02/01/21 2:30 PM) 97 % (02/01/21 2:15 PM) Pulse Rate [55-90 bpm] 72 bpm (02/01/21 12:44 PM) Blood Pressure [90-138/55-84 mm Hg] 136/78mm Hg (02/01/21 2:45 PM) 137/78mm Hg (02/01/21 2:30 PM) 137/78mm Hg (02/01/21 2:15 PM) Respiratory Rate [16-30 br/min] 15 br/min *L* (02/01/21 3:01 PM) 19 br/min (02/01/21 2:45 PM) 12 br/min *L* (02/01/21 2:30 PM) Temperature [96.8-100.4 DegF] 97.5 DegF (02/01/21 3:30 PM) 97.7 DegF (02/01/21 2:15 PM) 98 DegF (02/01/21 12:44 PM) Mode of Delivery (Oxygen) Room air (02/01/21 2:30 PM) Room air (02/01/21 2:15 PM) Room air (02/01/21 12:44 PM) Blood pressure sites Arm, right (02/01/21 2:15 PM) Temperature Route Temporal (02/01/21 3:30 PM) Temporal (02/01/21 2:15 PM) Temporal (02/01/21 12:44 PM) Social History Social History Type Response Smoking Status Never smoker; Tobacc o user in household: No entered on: 07/31/17 Sex
--- OUTSIDE RECORDS SUMMARY | 2022-11-20 17:57 | XMS_ITS | Continuity of Care Document ---
Author Name Unknown Organization [facility] Address [address] [place] [address]- Care Team Providers Care Parts Designer Name Role Phone Michael JACK, Estelita Doran Primary Care Physician Encounter [facility] [place] Date(s): 09/17/19 - 09/24/19 [facility] [address] [place] [address]- [facility] Attending Physician: Boo GARCIA, Yesenia Kim Allergies, [...] capsule, 6 Refills, Maintenance, 09/17/19 17:59:00EDT, Capsule, [facility] #[id number], 188.2, cm, 06/23/19 8:42:00 EDT, Height, 137.7, [...]
--- OUTSIDE RECORDS SUMMARY | 2022-11-20 17:57 | XMS_ITS | Continuity of Care Document ---
Author Name Unknown Organization [facility] Address [address] [place] [address]- Care Team Providers Care Button Spindler Name Role Phone Michael JACK, Estelita Doran Primary Care Physician [phone] [id number] - 11/20/[facility] [address] [place] [address] [place] [facility] Attending Physician: Yesenia Haddad MD Admitting Physician: Yesenia Haddad MD Allergies, Adverse Reactions, Alerts Substance Reaction Severity Status Seafood Active Medications advair advair, Refills 0, Maintenance, 03/29/18 14:31:03 EST, Compound Start Date: 03/29/18 Status: Ordered Albuterol 0 Refills, Maintenance, 11/25/14 12:07:29 Start Date: 11/25/14 Status: Ordered dicyclomine 10 mg oral capsule 1 capsule = 10 mg, By Mouth, 2 times a day, # 60 capsule, 6 Refills, Maintenance, 09/17/19 17:59:00EDT, Capsule, [facility] #[id number], 188.2, cm, 06/23/19 8:42:00 EDT, Height, 137.7, [...] Refills, Maintenance, 07/31/17 13:05:37 EDT Start Date: 5/15/18 Status: Ordered Methylphenidate 0 Refills, Maintenance, 09/17/15 [...]
--- OUTSIDE RECORDS SUMMARY | 2022-11-20 17:57 | XMS_ITS | Continuity of Care Document ---
Author Name Unknown Organization [facility] Address [address] [place] [address]- Care Team Providers Care Adult Manager Name Role Phone Michael JACK, Estelita Doran Primary Care Physician [phone] [place] [facility] [place] 09/17/19 - 10/17/19 [facility] [address] [place] [address] [facility] Attending Physician: Admtr, Merrill8 Admitting Physician: Admtr, Ar8 Referring Physician: Admtr, [...] capsule, 6 Refills, Maintenance, 09/17/19 17:59:00EDT, Capsule, [facility] #[id number], 188.2, cm, 06/23/19 8:42:00 EDT, Height, 137.7, [...]
[2022-11-20 18:10] LABS: IDNOW Serial# 08D9AD1C; Strep A Nucleic Acid Negative (Negative)
[2022-11-20 18:16] LABS: IDNOW Serial# BCCEAD1C; Influenza A Negative (Negative); Influenza B2 Negative (Negative)
[2022-11-20 22:01] LABS: COVID-19 Test Positive (Negative); IDNOW Serial# 9DB6401D
[2022-11-20] MEDS: Ibuprofen 400 MG TABLET PO (23:19)
[2022-11-20] MEDS: Acetaminophen 325 MG TABLET 975 MG PO (23:19)
[2022-11-20 23:22] VITALS: O2SAT 97
[2022-11-20 23:59] VITALS: BP 117/95; PULSE 88; RESP 20; TEMP 36.9; O2SAT 97
--- NOTE | 2022-11-21 00:02 | PC.NURSE ---
Reviewed discharge instructions with pt. pt verbalized understanding, no sign of distress, Notified RN Mayuri.
== END 2022-11-21 00:05 | disposition home or self-care (01) ==
PROVIDERS: Registered Nurse Emergency; Emergency Provider Student in an Organized Health Care Education/Training Program
DX: U07.1 COVID-19 (principal); R51.9 Headache, unspecified; R09.89 Other specified symptoms and signs involving the circulatory and respiratory systems; Z79.899 Other long term (current) drug therapy
CPT/HCPCS: 71046; 87502; 87635; 87651; 99283; 99284

== ENCOUNTER 2023-11-12 10:13 | Outpatient (AMB) | payer MEDICAID, SELFPAY ==
[2023-11-12 10:32] VITALS: BP 142/90; PULSE 71; O2SAT 98; BMI 46.5
--- NOTE | 2023-11-12 10:32 | MHC.OFFVIS ---
Vital Signs 11/12/23 10:32 Height 6 ft Weight 342 lb 13.101 oz BMI 46.5 BP 142/90 H Blood Pressure Location Rt brachial Position Sitting Pulse 71 Pulse Source Pulse Oximeter Pulse Oximetry (%) 98 Oxygen Delivery Method Room Air Intake Visit Reasons: Asthma Allergies SEAFOOD Allergy (Mild, Uncoded 11/12/23 10:36) HIVES Mice Allergy (Unknown, Uncoded 11/12/23 10:36) Unknown Seasonal allergy Allergy (Unknown, Uncoded 11/12/23 10:36) Unknown Shellfish Allergy (Unknown, Uncoded 11/12/23 10:36) Unknown HPI HPI Asthma: Details: Reyes is pleasant 22 year old male, never smoker, with underlying asthma and environmental allergies. He is accompanied by his mother. He reports asthma since childhood, never requiring intubation. He was previously under the care of gate person for asthma and allergies, however was lost to follow up and presents today to establish with pulmonary. He was on advair and singulair with good control of symptoms. He has been out of both for quite some time and reports wheezing, dry cough, and dyspnea with exertion. He reports multiple seasonal allergies, using a daily antihistamine with good effect. He denies any pets at home. He reports multiple first degree family members with allergies and asthma. [facility] Medical History (Updated 11/16/23 @ 13:01 by Nela Mueller NP) Anxiety ADHD (attention deficit hyperactivity disorder) Asthma Social History (Updated 11/12/23 @ 10:36 by Nikki Quinonez CMA) Patient Tobacco Use Status: Never used Tobacco Review of Systems Const Denies chills, Denies excessive sweating, Denies fever(s), Denies headache(s) and Denies night sweats Eyes Denies dry eyes, Denies irritation and Denies itchy eyes ENT Reports Normal hearing present, Denies headache(s), Denies nasal congestion, Denies nasal discharge, Denies post nasal drip and Denies sore throat Card Denies chest pain, Denies chest pain at rest, Denies chest pain with activity, Denies claudication, Denies leg edema, Denies orthopnea and Denies paroxysmal nocturnal dyspnea Resp Denies chest congestion, Denies excessive phlegm production, Denies pain on inspiration, Denies pain with cough and Denies stridor Musc Denies myalgias Neuro Reports Normal hearing present and Denies headache(s) Endo Denies excessive sweating Marvin/Lymph Denies lymphadenopathy Aller/Immun Denies itchy eyes and Denies seasonal rhinorrhea Physical Exam Vital Signs: Last Vital Signs Pulse 71 11/12/23 10:32 BP 142/90 H 11/12/23 10:32 Pulse Ox 98 11/12/23 10:32 Oxygen Delivery Method Room Air 11/12/23 10:32 BMI result Body Mass Index 46.5 Const General: cooperative, healthy appearing, comfortable, no acute distress, well developed and alert Nutritional Appearance: obese Orientation/consciousness: patient oriented x3 Limitations: no limitations HEENT Head: Yes normal to inspection, Yes normocephalic and Yes atraumatic Ears: hearing grossly normal bilaterally and external ears normal Eyes General: appearance normal, both eyes and all related structures Eyelids: Yes eyelids normal Sclerae: sclerae normal EOM: EOMs intact bilaterally Neck Neck: Yes normal visual inspection and Yes no lymphadenopathy Lymphatic: no lymphadenopathy noted Chest Chest palpation & inspection: normal inspection of the chest Resp Effort & Inspection: normal respiratory effort, able to speak in complete sentences, no audible wheezes, no cough, no stridor, not tachypneic, no tripod positioning and no use of accessory muscles Auscultation: clear to auscultation bilaterally Cardio Jugular venous distension: no JVD Rate: regular rate Rhythm: regular rhythm Skin Other: warm, dry General skin exam: no rashes or lesions noted Neuro General: patient oriented x3 Cranial nerves: Yes Normal hearing present Cognition (Neuro): normal cognition Gait exam (Neuro): Normal gait present Extrem General: Yes normal to inspection, Yes capillary refill normal, Yes no clubbing, cyanosis or edema and Yes no pedal edema Psych Appearance: grossly normal and well kempt Speech and movement: Normal speech and movement present and Clear speech present Affect: normal affect Attitude: cooperative Thought process: Normal thought process present Thought content: Normal thought content present Insight: Good insight present (Psych) Judgement: Good judgement present (Psych) Assessment & Plan Assessment & Plan (1) Asthma: Code(s): J45.909 - Unspecified asthma, uncomplicated Category: Medical (2) Environmental allergies: Code(s): Z91.09 - Other allergy status, other than to drugs and biological substances Category: Medical Plan Reyes's symptoms are likely related to underlying asthma and allergies. Will send in Advair and Singulair. Will also send for PFT and RAST. All questions were answered and patient is in agreement of plan. Will follow up to review results or sooner if needed. Orders: Orders Resp Allergy Profile Region I 11/12/23 Z91.09 - Other allergy status, other than to drugs and biological substances Immunoglobulin E 11/12/23 Z91.09 - Other allergy status, other than to drugs and biological substances Complete Blood Count Auto Diff 11/12/23 Z91.09 - Other allergy status, other than to drugs and biological substances Medications: Discontinued ondansetron Discontinued Reason: Patient Completed Course 4 mg PO Q6H PRN 10 tabs 0RF nausea and vomiting Coding Level of Care Code New Pt Level 3 (74486) Diagnoses Asthma J45.909 Environmental allergies Z.
== END 2023-11-12 11:04 | disposition home or self-care (01) ==
PROVIDERS: Visit Provider Nurse Practitioner Family
DX: J45.909 Unspecified asthma, uncomplicated (principal); Z91.09 Other allergy status, other than to drugs and biological substances
CPT/HCPCS: 99203

== ENCOUNTER → 2023-11-12 10:13 | Outpatient (BNVA) | payer MEDICAID, SELFPAY | PROVIDERS: Visit Provider Nurse Practitioner Family | DX: J45.909 Unspecified asthma, uncomplicated (principal); Z91.09 Other allergy status, other than to drugs and biological substances | CPT/HCPCS: 99212 ==